=== PATIENT | male | born 1985 | race African-American/Black ===

== ENCOUNTER 2021-01-27 18:01 | Emergency (ER) | payer SELFPAY ==
[~2021-01-27] VITALS: Ht 185.4 cm; Wt 79.5 kg
[2021-01-27 18:17] VITALS: TEMP 98.5
[2021-01-27] MEDS ORDERED: XANAX2 MG PO (18:21)
[2021-01-27 19:10] LABS: BASO % 0.3 % (0.0-2.0); EOS # 0.2 (0.0-0.7); EOS % 1.5 % (0-4.0); GRAN # 7.4 (1.4-6.5); GRAN % 62.1 % (42.2-75.2); HEMATOCRIT 50.7 % (42.0-52.0); HEMOGLOBIN 17.9 g/dl (13.5-18.0); LYMPH # 3.2 (1.2-3.4); LYMPH % 26.6 % (20.0-51.0); MEAN CELL VOLUME 86 fl (80.0-100.0); MEAN CORPUSCULAR HEMOGLOBIN 30 pg (27.0-31.0); MEAN CORPUSCULAR HGB CONC 35 g/dl (33.0-37.0); MEAN PLATELET VOLUME 9.7 fl (7.4-10.4); MONO # 1.1 (0.1-0.6); MONO % 9.1 % (1.7-9.3); PLATELET COUNT 283 K/mm3 (130-400); RED BLOOD COUNT 5.93 M/mm3 (4.20-5.60); REDCELL DISTRIBUTION WIDTH-CV 11.9 % (11.5-14.5)
[2021-01-27 19:20] LABS: C-REACTIVE PROTEIN < 0.5 mg/dL (0.0-0.9)
[2021-01-27 19:27] LABS: TROPONIN-I < 0.012 ng/mL (0.000-0.035)
[2021-01-27 20:22] LABS: ALBUMIN 4.5 gm/dL (3.5-5.0); CALCIUM 9.4 mg/dL (8.4-10.2); CREATININE, serum 0.98 (0.66-1.25); POTASSIUM 4.1 mmol/L (3.4-5.0); TOTAL PROTEIN 8.4 gm/dL (6.4-8.2)
[2021-01-27 22:04] VITALS: BP 148/98; PULSE 103
== END 2021-01-27 22:04 | disposition home or self-care (01) ==
LOC: COL.ER 18:01
PROVIDERS: Nurse Practitioner; Personal Emergency Response Attendant
DX: F41.9 Anxiety disorder, unspecified (principal); I10 Essential (primary) hypertension; F17.210 Nicotine dependence, cigarettes, uncomplicated; Z79.899 Other long term (current) drug therapy
CPT/HCPCS: J0360